=== PATIENT | male | born 1960 | race African-American/Black ===

== ENCOUNTER 2016-09-16 08:35 | Emergency (ER) | payer OTHER ==
[~2016-09-16] VITALS: Ht 190.5 cm; Wt 138.0 kg
[~2016-09-16 08:35] MED LIST: INDOCIN50 MG PO
[2016-09-16 08:45] VITALS: BP 169/92
[2016-09-16 12:51] LABS: RED CELL COUNT 1000 /MM^3 (0-1); WHITE CELL COUNT 26150 /MM^3 (0-200.0)
[2016-09-16 12:52] LABS: APPEARANCE HAZY/STRAW
[2016-09-16 13:11] LABS: MONO RAW COUNT 2; MONONUCLEAR WBC'S 2 %; POLY RAW COUNT 98; POLYNUCLEAR WBC'S 98 % (0-25); SYNOVIAL FLUID EOSINOPHILS 0 % (0-25)
[2016-09-16] MEDS ORDERED: INDOCIN50 MG PO (13:17)
[2016-09-16] MEDS ORDERED: COLCHICINE0.6 M1 PO (13:18)
== END 2016-09-16 13:39 | disposition home or self-care (01) ==
LOC: EME 08:35
PROVIDERS: Emergency Medicine
PROC: 0S9C3ZZ Drainage of Right Knee Joint, Percutaneous Approach (ICD-10-PCS; principal; 2016-09-16)
DX: M10.061 Idiopathic gout, right knee (principal); Z87.891 Personal history of nicotine dependence
CPT/HCPCS: 73564; 87205; 89051; 89060; 99281; 99283